=== PATIENT | male | born 1990 | race Caucasian/White ===

== ENCOUNTER 2017-06-23 10:43 | Emergency (ER) | payer SELFPAY ==
--- NOTE | 2017-06-23 11:00 | ED Physician Documentation ---
PD HPI LOWER EXT INJURY - Stated complaint Stated Complaint: LEG PX - Chief complaint Chief Complaint: Ext Problem - History obtained from History obtained from: Patient - History of Present Illness PD HPI LOW EXT INJURY LOCATION: Right, Lower leg Type of injury: Other (No specific injury.) Timing - duration: Days (3) Timing - details: Still present Associated symptoms: Swelling. No: Weakness, Numbness Similar symptoms before: Has not had sx before - Treatment prior to arrival Treatment prior to arrival: Ibuprophen without relief. - Additional information Additional information: The patient is an otherwise healthy 26-year-old male who presents with sharp pain in his right lower leg. His symptoms started 3 days ago, and he has noticed swelling of his lower leg. He denies any traumatic injury or any prolonged sedentary periods or recent travel. He denies cough or shortness of breath. He denies history of similar symptoms in the past. He has taken ibuprofen, without relief. Review of Systems Constitutional: denies: Fever Nose: denies: Congestion Throat: denies: Sore throat Cardiac: denies: Chest pain / pressure Respiratory: denies: Dyspnea, Cough GI: denies: Abdominal Pain, Nausea, Vomiting : denies: Dysuria Skin: denies: Rash Musculoskeletal: reports: Extremity pain (Right calf.). denies: Neck pain, Back pain Neurologic: denies: Focal weakness, Numbness, Headache PD PAST MEDICAL HISTORY - Past Medical History Cardiovascular: None Respiratory: None Neuro: None Endocrine/Autoimmune: None - Past Surgical History Past Surgical History: No - Present Medications Home Medications: Ambulatory Orders Medication Instructions Recorded Confirmed No Known Home Medications [No 06/23/17 06/23/17 Known Home Medications] - Allergies Allergies/Adverse Reactions: Allergies Allergy/AdvReac Type Severity Reaction Status Date / Time Penicillins Allergy Intermediate Itching Verified 06/23/17 10:53 - Social History Does the pt smoke?: No Smoking Status: Never smoker Does the pt drink ETOH?: No Does the pt have substance abuse?: No - Immunizations Immunizations are current?: Yes - POLST Patient has POLST: No PD ED PE NORMAL - Vitals Vital signs reviewed: Yes (Normal) - General General: Alert and oriented X 3, Well developed/nourished - HEENT HEENT: Atraumatic, EOMI, Pharynx benign - Neck Neck: No adenopathy, No JVD - Cardiac Cardiac: RRR, No murmur - Respiratory Respiratory: No respiratory distress, Clear bilaterally - Abdomen Abdomen: Soft, Non tender - Back Back: No CVA TTP - Derm Derm: No rash - Extremities Extremities: Other (There is slight swelling of the right ankle, with tenderness to palpation of the calf. There is no warmth or erythema. He has full range of motion of the knee without discomfort. Distal neurovascular is intact.) - Neuro Neuro: Alert and oriented X 3, No motor deficit, No sensory deficit Results - Vitals Vitals: Oxygen O2 Source Room air - Labs Labs: Laboratory Tests 06/23/17 11:05 D-Dimer < 200.0 L - Rads (name of study) Duplex U/S right lower leg Radiology: EMP read contemporaneously, See rad report (No DVT.) PD MEDICAL DECISION MAKING - ED course Complexity details: reviewed results, re-evaluated patient, considered differential, d/w patient ED course: The pain and swelling in the patient's right lower leg is most likely due to a muscle strain. Ultrasound reveals no evidence of deep venous thrombosis. There is no evidence to suggest cellulitis, and the location of his swelling and discomfort does not suggest a Eason's cyst. I discussed with him the results of the ultrasound, symptomatic treatment and outpatient follow-up, as well as potentially worrisome signs or symptoms that should prompt reevaluation in the emergency department. Departure - Departure Disposition: 01 Home, Self Care Clinical Impression: Pain of lower extremity Qualifiers: Laterality: right Qualified Code(s): M79.604 - Pain in right leg Condition: Stable Instructions: ED Strain Muscle Ext Comments: Keep your right leg elevated as much the time as possible. Use Tylenol or ibuprofen if needed for discomfort. Let pain be your guide to activity level. Follow-up with your primary physician, or return to the emergency department if you develop increasing pain or swelling or leg, or otherwise worsening symptoms. Forms: Activity restrictions Discharge Date/Time: 06/23/17 12:45
[2017-06-23 12:11] VITALS: BP 121/82
--- NOTE | 2017-06-23 12:54 | Ultrasound Report ---
RIGHT LEG VENOUS DUPLEX: 06/23/2017 CLINICAL INDICATION: Pain, swelling. TECHNIQUE: Real-time sonographic vascular imaging was performed by the tool and die maker/designer through the right lower extremity utilizing both color flow and Doppler spectral analysis. Multiple customer service representative teller stat ic images were saved for review. FINDINGS: A right lower extremity venous sonogram is performed revealing the common femoral, superfic ial femoral, profunda femoris, and popliteal veins to be adequately visualized without intraluminal d efects. There is normal venous compression, augmentation, phasicity, and spontaneity of venous flow. In the calf, the visualized more cephalad portions of posterior tibial and peroneal veins are grossly compressible, without filling defects. IMPRESSION: NO EVIDENCE OF DEEP VENOUS THROMBOSIS. JOB #: [id number] EXT JOB #:
== END 2017-06-23 12:45 | disposition home or self-care (01) ==
LOC: ED 10:43
DX: M79.661 Pain in right lower leg (principal)
CPT/HCPCS: 36415; 85379; 99283

== ENCOUNTER 2017-07-10 15:41 | Emergency (ER) | payer SELFPAY ==
[2017-07-10 15:46] VITALS: BP 139/77
--- NOTE | 2017-07-10 17:28 | ED Physician Documentation ---
PD HPI HEENT - Stated complaint Stated Complaint: MOUTH PX - Chief complaint Chief Complaint: Heent - History obtained from History obtained from: Patient - History of Present Illness Timing - onset: How many days ago (2-3) Timing - duration: Days Timing - details: Gradual onset, Still present Location: Throat, Mouth. No: Sinuses, Tooth Worsens: Swalllowing Associated symptoms: Fever, Swollen nodes. No: Congestion, Facial swelling, Cough Similar symptoms before: Has not had sx before Recently seen: Not recently seen Review of Systems Constitutional: reports: Fever, Chills, Myalgias Throat: reports: Oral lesions / sores, Sore throat Cardiac: denies: Chest pain / pressure Respiratory: denies: Dyspnea, Cough GI: reports: Nausea. denies: Abdominal Pain, Vomiting, Diarrhea Skin: denies: Rash, Lesions PD PAST MEDICAL HISTORY - Past Medical History Cardiovascular: None Respiratory: None Neuro: None Endocrine/Autoimmune: None - Past Surgical History Past Surgical History: No - Present Medications Home Medications: Ambulatory Orders Medication Instructions Recorded Confirmed Cephalexin [Keflex] 500 mg PO QID #24 capsule 07/10/17 Dexamethasone [Decadron] 4 mg PO DAILY #5 tablet 07/10/17 HYDROcod/ACETAM 5/325 [[place] 5/325] 1 tab PO Q6H PRN #15 tablet 07/10/17 Lidocaine Viscous 2% [Xylocaine 5 ml PO Q4H PRN #1 bottle 07/10/17 Viscous 2%] Ondansetron HCl [Zofran] 4 mg PO Q6H PRN #20 tablet 07/10/17 - Allergies Allergies/Adverse Reactions: Allergies Allergy/AdvReac Type Severity Reaction Status Date / Time Penicillins Allergy Intermediate Itching Verified 07/10/17 17:47 - Social History Does the pt smoke?: No Smoking Status: Never smoker Does the pt drink ETOH?: No Does the pt have substance abuse?: No - Immunizations Immunizations are current?: Yes - POLST Patient has POLST: No PD ED PE NORMAL - Vitals Vital signs reviewed: Yes - General General: Alert and oriented X 3, Well developed/nourished - HEENT HEENT: No: Pharynx benign (tonsillar redness and exudate, more on right. No peritonsillar swelling noted. He has slight garbling of phonation when talking. There are some spotty ulcerations of palatte and gums posteriorly. None on lips nor foreward gums. ) - Neck Neck: Supple, no meningeal sign, Other (anterior adenopathy noted. ) - Cardiac Cardiac: RRR, No murmur - Respiratory Respiratory: Clear bilaterally - Derm Derm: Normal color, Warm and dry, No rash - Extremities Extremities: Other (hands and palms without sores. ) Results - Vitals Vitals: Oxygen O2 Source Room air - Labs Labs: Microbiology 07/10/17 17:48 Group A Strep Throat Culture - Final Throat Beta Hemolytic Strep Group B Laboratory Tests 07/10/17 17:48 Group A Strep Rapid Negative PD MEDICAL DECISION MAKING - ED course Complexity details: reviewed results (rapid negative but this looks very c/w strep throat tonsils and he has slight garbling of speech to suggest early abscess though no peritonsillar swelling is visible, that I feel he should be treated with abx/steroids empirically and await culture result. ), considered differential, d/w patient Departure - Departure Disposition: 01 Home, Self Care Clinical Impression: Exudative tonsillitis, Stomatitis Condition: Stable Record reviewed to determine appropriate education?: Yes Instructions: ED Strep Pharyngitis Poss Prescriptions: Dexamethasone [Decadron] 4 mg PO DAILY #5 tablet Cephalexin [Keflex] 500 mg PO QID #24 capsule HYDROcod/ACETAM 5/325 [[place] 5/325] 1 tab PO Q6H PRN #15 tablet PRN Reason: Pain Lidocaine Viscous 2% [Xylocaine Viscous 2%] 5 ml PO Q4H PRN #1 bottle PRN Reason: Pain Ondansetron HCl [Zofran] 4 mg PO Q6H PRN #20 tablet PRN Reason: Nausea / Vomiting Comments: Drink lots of fluids. Ondansetron if needed for nausea. Use Tylenol or hydrocodone if needed for pain. For the mouth sores some cells, you can use liquid Benadryl which will numb some and combine it with the viscous lidocaine as needed. We will treated as bacterial infection for now with cephalexin 4 times a day as directed. Also use Decadron anti-inflammatory for 5 more days. Recheck if not improving over the next couple of days and return sooner if worse. The culture will result in 2-3 days to verify the type of infection. Forms: Activity restrictions Discharge Date/Time: 07/10/17 18:33
[2017-07-10] MEDS ORDERED: diphenhydrAMINE ELIXIR 25 MG/10 ML UDC PO STA (17:48)
[2017-07-10] MEDS ORDERED: ONDANSETRON ODT 4 MG TABLET TL STA (17:48)
[2017-07-10] MEDS ORDERED: CEPHALEXIN 250 MG CAPSULE PO STA (17:49)
[2017-07-10] MEDS ORDERED: DEXAMETHASONE 10 MG/ML VIAL PO STA (17:49)
[2017-07-10] MEDS ORDERED: LIDOCAINE VISCOUS 2% 15 ML UDC MM STA (17:49)
[2017-07-10] MEDS ORDERED: ACETAMINOPHEN 325 MG TABLET PO STA (17:50)
[2017-07-10] MEDS ORDERED: ACETAMINOPHEN 325 MG TABLET PO ONE (18:02)
[2017-07-10] MEDS ORDERED: ONDANSETRON ODT 4 MG TABLET ONE (18:03)
[2017-07-10] MEDS ORDERED: LIDOCAINE VISCOUS 2% 15 ML UDC MM ONE (18:03)
[2017-07-10] MEDS ORDERED: DEXAMETHASONE 10 MG/ML VIAL ONE (18:03)
[2017-07-10] MEDS ORDERED: CEPHALEXIN 250 MG CAPSULE PO ONE (18:03)
[2017-07-10] MEDS ORDERED: diphenhydrAMINE ELIXIR 25 MG/10 ML UDC PO ONE (18:03)
[2017-07-10 18:38] LABS: RAPID STREP SCREEN REAGENT QC YELLOW (YELLOW)
== END 2017-07-10 18:33 | disposition home or self-care (01) ==
LOC: ED 15:41
DX: J03.90 Acute tonsillitis, unspecified (principal); K12.1 Other forms of stomatitis
CPT/HCPCS: 87070; 87430; 99283; A9270; Q0162

== ENCOUNTER 2018-09-18 16:01 | Emergency (ER) | payer BC ==
[2018-09-18] MEDS ORDERED: LIDOCAINE 1%-EPI 1:100000 30 ML MDV SUBQ STA (18:00)
--- NOTE | 2018-09-18 18:44 | ED Physician Documentation ---
PD HPI LOWER EXT INJURY - Stated complaint Stated Complaint: R GREAT TOE PX - Chief complaint Chief Complaint: Ext Problem - History obtained from History obtained from: Patient - History of Present Illness PD HPI LOW EXT INJURY LOCATION: Right, Toe Associated symptoms: Swelling, Discolored - Additional information Additional information: The patient is a 27-year-old male who presents with pain and swelling of his right. Toe. He suffered a crush injury 3 months ago, causing avulsion of his toenail. As the toenail has been growing back, it has become increasingly ingrown, causing pain and swelling of the big toe. Review of Systems Constitutional: denies: Fever Musculoskeletal: reports: Extremity pain (Right big toe.) Neurologic: denies: Focal weakness, Numbness PD PAST MEDICAL HISTORY - Past Medical History Cardiovascular: None Respiratory: None Endocrine/Autoimmune: None - Past Surgical History Past Surgical History: No - Present Medications Home Medications: Ambulatory Orders Medication Instructions Recorded Confirmed Cephalexin [Keflex] 500 mg PO QID #24 capsule 07/10/17 Dexamethasone [Decadron] 4 mg PO DAILY #5 tablet 07/10/17 HYDROcod/ACETAM 5/325 [[place] 5/325] 1 tab PO Q6H PRN #15 tablet 07/10/17 Lidocaine Viscous 2% [Xylocaine 5 ml PO Q4H PRN #1 bottle 07/10/17 Viscous 2%] Ondansetron HCl [Zofran] 4 mg PO Q6H PRN #20 tablet 07/10/17 - Allergies Allergies/Adverse Reactions: Allergies Allergy/AdvReac Type Severity Reaction Status Date / Time Penicillins Allergy Intermediate Itching Verified 09/18/18 16:06 - Social History Does the pt smoke?: No Smoking Status: Never smoker Does the pt drink ETOH?: No Does the pt have substance abuse?: No - Immunizations Immunizations are current?: Yes - POLST Patient has POLST: No PD ED PE NORMAL - Vitals Vital signs reviewed: Yes (Borderline hypertension initially.) - General General: Alert and oriented X 3, Well developed/nourished - HEENT HEENT: Atraumatic - Respiratory Respiratory: No respiratory distress - Derm Derm: No rash - Extremities Extremities: Other (The toenail of the right great toe is thick compared to the other toenails. It is ingrown into the lateral aspect of the distal toe. There is associated erythema, without purulence.) - Neuro Neuro: Alert and oriented X 3, Normal speech Results - Vitals Vitals: Oxygen O2 Source Room air Procedures - General procedure General procedure: Excision of ingrown right great toenail. Hibiclens prep Digital block with 1% lidocaine with epi. Ingrown toenail excised with scissors and forceps. Antibiotic ointment and Band-aid applied. Patient tolerated procedure well. PD MEDICAL DECISION MAKING - ED course Complexity details: re-evaluated patient, considered differential, d/w patient ED course: The patient's presentation is significant for ingrown right great toenail. There is no abscess. Treatment in the emergency department included excision of the ingrown toenail after digital block. I discussed with him the expected course of healing, symptomatic treatment and outpatient follow-up, as well as potentially worrisome signs or symptoms that should prompt reevaluation in the emergency department. Departure - Departure Disposition: 01 Home, Self Care Clinical Impression: Ingrown toenail of right foot Condition: Stable Instructions: ED Ingrown Toenail Excised Follow-Up: [facility] [Provider Group] Comments: Keep your right foot elevated as much the time as possible over the next 3 days. Keep the wound clean, and soak it in warm water twice daily. Apply antibiotic ointment twice daily, after soaking. You can use Tylenol or ibuprofen as needed for discomfort. Follow-up with primary physician. Call for next available appointment. Return to the emergency department if you develop increasing redness, swelling, pain, or otherwise worsening symptoms. Forms: Activity restrictions Discharge Date/Time: 09/18/18 19:00
[2018-09-18 18:51] VITALS: BP 137/77
== END 2018-09-18 19:00 | disposition home or self-care (01) ==
LOC: ED 16:01
DX: L60.0 Ingrowing nail (principal)
CPT/HCPCS: 11730; 99282; 99283

== ENCOUNTER 2024-05-10 13:27 | Emergency (ER) | payer SELFPAY | END 2024-05-10 14:00 | disposition left against medical advice (07) | LOC: ED 13:27 | DX: Z53.21 Procedure and treatment not carried out due to patient leaving prior to being seen by health care provider (principal) ==